=== PATIENT | female | born 1930 | race Caucasian/White ===

== ENCOUNTER → 2017-05-07 | Outpatient (CLI) | payer MEDICARE, OTHER ==
--- NOTE | 2017-05-07 16:15 | RAD ---
Indication injury, pain. AP oblique and lateral views of the right elbow were obtained. No bony abnormality is seen. There is no significant joint fluid
--- NOTE | 2017-05-07 16:19 | RAD ---
Indication trauma, pain. AP and lateral views of the right knee were obtained. There are substantial degenerative changes. There is marked medial joint space compartment narrowing with some associated sclerosis of the medial tibial plateau and medial femoral condyle. There is patellofemoral narrowing. 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 A fracture or acute finding is not seen. There may be a small joint effusion. 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
== END | disposition home or self-care (01) ==
LOC: RAD 15:20
PROVIDERS: ATTEND Family Medicine
DX: S59.901A Unspecified injury of right elbow, initial encounter (principal); S89.91XA Unspecified injury of right lower leg, initial encounter; X58.XXXA Exposure to other specified factors, initial encounter; Y93.89 Activity, other specified; Y92.89 Other specified places as the place of occurrence of the external cause; Y99.8 Other external cause status
CPT/HCPCS: 73080; 73560